=== PATIENT | male | born 1970 | race Caucasian/White ===

== ENCOUNTER → 2021-02-04 13:50 | Outpatient (CLI) | payer BC, SELFPAY | PROVIDERS: PCP Family Medicine; Visit Provider Family Medicine | DX: Z20.822 Contact with and (suspected) exposure to COVID-19 (principal) | CPT/HCPCS: 87635; U0005; U0003 ==

== ENCOUNTER → 2022-07-06 | Outpatient (CLI) | payer BC, SELFPAY ==
--- NOTE | 2022-07-06 | VAS_PTH ---
PATIENT: BERTHA TAYLOR LOC: [facility] U#:[id number] AGE/SX: 51/M ROOM: RE07/06/[address]: Dr. Chente Figueroa MD : 1970 BED: DIS: 07/06/2022 SPEC #: [id number] RECD: 07/06/22 15:57 STATUS: OBED RESolomon #: [id number] ASIF: 07/06/22 00:[address]: Chente Figueroa DEPT: SURGICAL PATHOLOGY RECD BY: Cameron Geronimo ENTERED: 07/07/22 08:59 SP TYPE: VAS OTHR DR: Dr. Mitch Morse MD Tissues: A - Vas deferens, NOS B - Vas deferens, NOS Procedures: Surgery Specimen Level II HEADER OPERATION: Bilateral partial vasectomy PRE-OP DIAGNOSIS: Sterilization TISSUE SUBMITTED: A ? Right vas deferens, B ? Left vas deferens MICROSCOPIC DIAGNOSIS A. Right vas deferens, partial vasectomy: Completely transected segment of vas deferens, no pathologic diagnosis. B. Left vas deferens, partial vasectomy: Completely transected segment of vas deferens, no pathologic diagnosis. SJ:ivanna 07/10/2022 MICROSCOPIC DESCRIPTION Slides are reviewed. GROSS DESCRIPTION A - Received is one container designated right vas deferens. The specimen consists of a cylindrical segment of pink-marie soft tissue measuring 0.4 cm in length and 0.2 cm in maximum diameter. The specimen is totally submitted in one cassette. B - Received is one container designated left vas deferens. The specimen consists of a cylindrical segment of pink-marie soft tissue measuring 0.5 cm in length and 0.2 cm in maximum diameter. The specimen is totally submitted in one cassette. / AM:ivanna 07/07/2022 TC:4 CPT: 05948 x2
== END | disposition home or self-care (01) ==
LOC: LABSPEC 16:17
PROVIDERS: PCP Family Medicine; Visit Provider Surgery
DX: Z30.2 Encounter for sterilization (principal)
CPT/HCPCS: 88302

== ENCOUNTER 2022-07-19 21:12 | Emergency (ER) | payer BC, SELFPAY ==
[2022-07-19 21:13] VITALS: BP 168/92; PULSE 71; RESP 15; TEMP 36.6; O2SAT 98; BMI 22.1
--- NOTE | 2022-07-19 21:27 | CT_ITS ---
EXAM: CT ABDOMEN AND PELVIS WITHOUT INTRAVENOUS CONTRAST CLINICAL INDICATION: abd pain TECHNIQUE: Helically acquired images were obtained of the abdomen and pelvis without intravenous contrast. This CT exam was performed using one or more of the following dose reduction techniques: automated exposure control, adjustment of the mA and/or kV according to patient size, and/or use of iterative reconstruction technique. This report was created using [employer] report generation technology. RADIATION DOSE: Total DLP: 343.77 mGy-cm. COMPARISON: None. FINDINGS: LOWER THORAX: Visualized lung bases are clear. No coronary artery calcification is visualized. There is a trace of pericardial effusion. ABDOMEN: LIVER: Scattered tiny rounded hypoattenuating foci noted within the liver, most likely cysts. GALLBLADDER AND BILE DUCTS: Unremarkable. No calcified gallstones. No gallbladder distention or wall edema. No intra- or extrahepatic biliary ductal dilation. PANCREAS: Unremarkable. No focal cystic mass. SPLEEN: Unremarkable. Normal size without focal cystic or solid mass. ADRENALS: Unremarkable. No nodules. KIDNEYS AND URETERS: Left kidney is mildly enlarged and emphysematous with mild left-sided hydronephrosis. The left ureter is mildly dilated to the level of a 2 x 4 mm reniform-shaped stone which lies within the mid ureter at the level of L5/S1 disc space. Distal left ureter is decompressed. No other renal or ureteral stones are seen. The right kidney is unremarkable. STOMACH AND BOWEL: Unremarkable. No stomach or bowel distention. No focal inflammatory change. PELVIS: APPENDIX: Retrocecal in location. No evidence of acute appendicitis. BLADDER: Unremarkable. REPRODUCTIVE: Unremarkable as visualized. No mass. ABDOMEN and PELVIS: INTRAPERITONEAL SPACE: Unremarkable. No ascites or other fluid collection. No free air. BONES/JOINTS: Unremarkable. No suspicious lytic or blastic abnormality. SOFT TISSUES: Small fat-filled bilateral inguinal hernias. VASCULATURE: Unremarkable. Abdominal aorta is non-dilated. LYMPH NODES: Unremarkable. No enlarged lymph nodes. CT/Abdomen/Pelvis without Cont IMPRESSION: Mild left hydronephrosis due to a 2 x 4 mm stone within the middle third of the ureter. Electronically Signed: Sorin Loredo MD at 22:07 EST ,
--- NOTE | 2022-07-19 21:28 | EDS_ITS ---
HPI History of Present Illness Chief Complaint: Abd Pain Informant: patient Onset/Context/Timing Onset: Today Context: Sudden Onset Current Severity: Severe Maximum Severity: Severe Narrative Narrative: Patient presents with sudden severe left lower quadrant abdominal pain this evening. He is been nauseated secondary to the degree of pain. He did not take anything for pain prior to arrival. He denies any similar symptoms in the past. He denies history of kidney stones. He did have a vasectomy performed on July 06 of this year. He has had no pain at his surgical site. PFSH PFS Medical History no medical history no medical history Home Medications loratadine 10 mg tablet (Claritin) 10 mg PO DAILY 04/22/21 [History Last Taken Unknown] triamcinolone acetonide 55 mcg nasal spray aerosol (Nasacort Allergy) 1 spray intranasal DAILY 04/22/21 [History Last Taken Unknown] ibuprofen 600 mg tablet 600 mg PO Q6H PRN PRN pain #20 tabs 07/19/22 [Rx Last Taken Unknown] ondansetron 4 mg disintegrating tablet 4 mg PO Q8H PRN nausea and vomiting #10 tabs 07/19/22 [Rx Last Taken Unknown] oxycodone-acetaminophen 5 mg-325 mg tablet (Percocet) 1 tab PO Q6H PRN pain 3 days #10 tabs 07/19/22 [Rx Last Taken Unknown] tamsulosin 0.4 mg capsule (Flomax) 0.4 mg PO DAILY #7 caps 07/19/22 [Rx Last Taken Unknown] Allergy/AdvReac Type Severity Reaction Status Date / Time No Known Allergies Allergy Verified 07/19/22 21:13 Family History Mother Breast cancer Father Colon cancer Surgical History History of vasectomy (~07/2022) Social History Smoking Status: Never smoker alcohol intake: never substance use type: does not use ROS ROS ED Constitutional Constitutional ED: Denies chills or fever(s) Eyes Eyes: Denies change in vision or discharge from eye(s) ENT ENT ED: Denies discharge from eye(s), rhinorrhea or sore throat Cardiovascular Cardiovascular: Denies chest pain or palpitations Respiratory/Chest Respiratory/Chest: Denies cough or dyspnea Gastrointestinal Gastrointestinal: Reports abdominal pain and nausea; Denies diarrhea or vomiting Genitourinary Genitourinary ED: Denies difficulty urinating or dysuria Musculoskeletal Musculoskeletal: Denies back pain or extremity pain Integumentary Denies Abrasions or rash Neurologic Neurologic: Denies headache(s) or weakness Psychiatric Psychiatric: Reports anxiety; Denies depression Allergic/Immunologic Allergic/Immunologic ED: Denies lip swelling or urticaria EXAM Physical Exam Const Vital Signs: 07/19/22 21:13 07/19/22 21:42 07/19/22 22:30 Temperature 97.8 F 98.2 F 98.4 F Temperature Source Temporal Temporal Temporal Pulse Rate 71 74 78 Respiratory Rate 15 17 16 Blood Pressure 168/92 H 132/74 H 114/77 Blood Pressure Mean 117 93 89 Pulse Ox 98 98 99 Oxygen Delivery Method Room Air Room Air Nasal Cannula 07/19/22 22:30 Temperature Temperature Source Pulse Rate Respiratory Rate Blood Pressure Blood Pressure Mean Pulse Ox 98 Oxygen Delivery Method Room Air Positive well nourished and well developed General Appearance ED: well developed HEENT Reports normocephalic and head/scalp atraumatic Eyes PERRL and EOMs intact bilaterally Neck supple Chest Wall inspection of chest normal and palpation of chest normal Resp normal respiratory effort and clear to auscultation bilaterally Cardio regular rate and regular rhythm GI non-tender Auscultation: hypoactive bowel sounds Palpation: soft Extremity normal to inspection Neuro oriented x3 and no sensory deficits noted Sensorium / Orientation: alert Motor Exam: strength 5/5 throughout Psych Psych Narrative: Anxious and tremulous. Skin no rashes or lesions noted MDM MDM MDM Narrative Medical decision making narrative: Patient is given morphine, Toradol, Zofran, IV fluids. Lab work ordered along with CT flank. Lab Data Attestation: I reviewed the patient's lab results. Labs: Laboratory Results - last 24 hr 07/19/22 07/19/22 21:44 21:44 WBC 11.5 H RBC 4.38 L Hgb 12.9 L Hct 38.2 L MCV 87.2 MCH 29.5 MCHC 33.8 RDW Std Deviation 40.8 RDW Coeff of [place] 12.7 Plt Count 322 MPV 10.1 Immature Gran % (Auto) 0.400 Neut % (Auto) 55.4 Lymph % (Auto) 34.2 [place] % (Auto) 7.1 Eos % (Auto) 1.9 Baso % (Auto) 1.0 Absolute Neuts (auto) 6.4 Absolute Lymphs (auto) 3.92 Nucleated RBC % 0 Sodium 141 Potassium 2.9 L Chloride 110 H Carbon Dioxide 22.0 Anion Gap 9 BUN 18 Creatinine 1.14 Estim Creat Clear Calc 75.43 Est GFR (MDRD) Af Amer 88 Est GFR (MDRD) Non-Af 72 BUN/Creatinine Ratio 15.8 Glucose 127 H Calcium 9.3 Radiography Diagnostic Testing: Clinical Impression(s) from Imaging Studies Abdomen/Pelvis CT 07/19/22 21:27 IMPRESSION: Mild left hydronephrosis due to a 2 x 4 mm stone within the middle third of the ureter. Electronically Signed: Sorin Loredo MD at 22:07 EST , Treatment and Re-Evaluation Narrative: CBC was a white count 11.5. No left shift noted. Chemistry studies reveal potassium of 2.9. Renal function is normal. After patient returns from CT scan he is having increasing pain again. He is given 1 mg of IV Dilaudid. CT scan of the flank reveals mild left hydro with a 2 x 4 mm stone in the mid third of the left ureter. Patient has required a total of 3 doses of pain medication. At this time he states he has no pain. In light of this we will attempt discharge to home with pain medication. Advised that if his pain becomes unbearable again he can return for admission if needed for pain control. Patient will be referred to urology for follow-up. Return instructions are given. Discharge Plan Triage Chief Complaint: Abd Pain ED Provider: Andreea Root Dx/Rx/DC Orders Clinical Impression: Ureterolithiasis Instructions: ED Kidney Stone w/ Colic Prescriptions: New oxycodone-acetaminophen [Percocet] 5-325 mg tablet 1 tab PO Q6H PRN (Reason: pain) 3 Days Qty: 10 0RF ibuprofen 600 mg tablet 600 mg PO Q6H PRN PRN (Reason: pain) Qty: 20 0RF ondansetron 4 mg tablet,disintegrating 4 mg PO Q8H PRN (Reason: nausea and vomiting) Qty: 10 0RF tamsulosin [Flomax] 0.4 mg capsule 0.4 mg PO DAILY Qty: 7 0RF No Action loratadine [Claritin] 10 mg tablet 10 mg PO DAILY triamcinolone acetonide [Nasacort Allergy] 55 mcg aerosol,spray 1 spray intranasal DAILY Rx Instructions: administer into each nostril Primary Care Provider: Gamal Morse Ref[facility]: [facility] Care Provider[facility] - [facility] Staff[facility] - 5-7 Days Disposition Disposition: Home, Self Care
[2022-07-19] MEDS: Morphine 4 MG/ML Syringe IV (21:37)
[2022-07-19] MEDS: Ketorolac 30 MG/ML Syringe IV (21:37)
[2022-07-19] MEDS: Ondansetron 4 MG/2 ML Vial IV (21:38)
[2022-07-19] MEDS: 0.9% Normal Saline 1,000 ML 150 ML IV (21:38)
[2022-07-19 21:42] VITALS: BP 132/74; PULSE 74; RESP 17; TEMP 36.8; O2SAT 98
[2022-07-19 21:50] LABS: Absolute Lymphocyte Count 3.92 X10^3/uL (0.83-4.51); Absolute Neutrophil Count 6.4 X10^3/uL (2.0-7.7); Basophil# 0.11 X10^3/uL; Eosinophil# 0.22 X10^3/uL; Eosinophils% 1.9 % (0-5); Hematocrit 38.2 % (40-54); Hemoglobin 12.9 g/dL (13.0-16.5); Lymphocyte # 3.92 X10^3/ul (0.83-4.51); Lymphocyte % 34.2 % (19-41); Mean Corp Hgb Conc 33.8 g/dL (32-36); Mean Corpuscular Hgb 29.5 pg (27.0-32.0); Mean Corpuscular Volume 87.2 fL (80-94); Mean Platelet Vol. 10.1 fl (6.2-12.0); Monocyte# 0.81 X10^3/uL; Monocyte% 7.1 % (0-10); NRBC Flagged by Analyzer 0 % (0-5); Neutrophil # 6.35 X10^3/uL (2.7-7.7); Neutrophil % 55.4 % (47-70); Platelet Count 322 K/mm3 (150-450); RBC Distribution Width CV 12.7 % (11.6-14.6); RBC Distribution Width SD 40.8 fl (35.1-43.9); Red Blood Count 4.38 M/mm3 (4.6-6.2); White Blood Count 11.5 K/mm3 (4.4-11.0)
[2022-07-19 22:16] LABS: Anion Gap 9 (5-15); BUN 18 mg/dL (7-18); BUN/Creat Ratio 15.8 RATIO (10-20); Calcium,Total 9.3 mg/dL (8.5-10.1); Chloride 110 mmol/L (98-107); Creatinine, Serum 1.14 mg/dL (0.70-1.30); EST Glomerular Filtration Rate 72 mL/min (>60); Est Glom Filt Rate - Afr Amer 88 mL/min (>60); Estimated Creatinine Clearance 75.43 ml/min; Glucose 127 mg/dL (74-106); Potassium 2.9 mmol/L (3.5-5.1); Sodium Level 141 mmol/L (136-145)
[2022-07-19] MEDS: HYDROmorphone 1 MG/ML Syringe IV (22:28)
[2022-07-19 22:30] VITALS: BP 114/77; PULSE 78; RESP 16; TEMP 36.9; O2SAT 98; O2SAT 99
[2022-07-19] MEDS: Potassium Chloride Oral Tablet 20 MEQ 40 MEQ PO (22:45)
[2022-07-19] MEDS: HYDROmorphone 0.5 MG/0.5 ML SYRINGE IV (23:13)
[2022-07-20 00:16] VITALS: O2SAT 97
== END 2022-07-20 00:17 | disposition home or self-care (01) ==
PROVIDERS: Emergency Provider Emergency Medicine; PCP Family Medicine; Visit Provider Emergency Medicine
DX: N13.2 Hydronephrosis with renal and ureteral calculous obstruction (principal)
CPT/HCPCS: 74176; 80048; 85025; 96374; 96375; 96376; 99282; J7030; A4216; J2405

== ENCOUNTER 2022-07-21 18:40 | Observation (INO) | payer BC, SELFPAY ==
[2022-07-21 18:41] VITALS: BP 114/80; PULSE 89; RESP 16; TEMP 36.4; O2SAT 99; BMI 22.3
[2022-07-21 20:21] LABS: Anion Gap 6 (5-15); BUN 16 mg/dL (7-18); BUN/Creat Ratio 13.9 RATIO (10-20); Calcium,Total 9.1 mg/dL (8.5-10.1); Chloride 113 mmol/L (98-107); Creatinine, Serum 1.15 mg/dL (0.70-1.30); EST Glomerular Filtration Rate 72 mL/min (>60); Est Glom Filt Rate - Afr Amer 87 mL/min (>60); Estimated Creatinine Clearance 75.28 ml/min; Glucose 111 mg/dL (74-106); Potassium 3.5 mmol/L (3.5-5.1); Sodium Level 142 mmol/L (136-145)
[2022-07-21 20:28] LABS: Bacteria 0 SEEN /hpf (None Seen)
[2022-07-21 20:34] LABS: Absolute Neutrophil Count 13.8 X10^3/uL (2.0-7.7); Basophil# 0.07 X10^3/uL; Basophil% 0.4 % (0-1); Eosinophil# 0.04 X10^3/uL; Eosinophils% 0.2 % (0-5); Hematocrit 39.4 % (40-54); Hemoglobin 13.4 g/dL (13.0-16.5); Lymphocyte % 5.6 % (19-41); Mean Corpuscular Hgb 29.6 pg (27.0-32.0); Mean Platelet Vol. 10.4 fl (6.2-12.0); Monocyte# 1.18 X10^3/uL; Monocyte% 7.3 % (0-10); NRBC Flagged by Analyzer 0 % (0-5); Platelet Count 287 K/mm3 (150-450); RBC Distribution Width CV 12.8 % (11.6-14.6); RBC Distribution Width SD 40.3 fl (35.1-43.9); Red Blood Count 4.53 M/mm3 (4.6-6.2); White Blood Count 16.1 K/mm3 (4.4-11.0)
[2022-07-21 20:35] LABS: Color, Urine Yellow (Yellow); Glucose, Dipstick Normal (Normal); Ketone-Dipstick 150 mg/dl (Negative); Leukocyte Esterase-Dipstick 25 /ul (Negative); Nitrite-Dipstick Negative (Negative); Occult Blood-Urine 250 /ul (Negative); Protein-Dipstick 15 mg/dl (Negative); Specific Gravity, Urine 1.025 (1.002-1.030); Urine Bilirubin Dipstick Negative (Negative); Urine Clarity Clear (Clear); Urine Urobilinogen Normal (Normal)
--- NOTE | 2022-07-21 20:37 | EDS_ITS ---
HPI History of Present Illness Chief Complaint: Abd Pain Narrative Narrative: 51-year-old male with history of kidney stone presenting for left flank pain. He was seen a couple of days ago for similar pain. He was given multiple doses of Dilaudid in the ER visit was hesitant to stay. He had a 2 mm x 4 mm ureteral stone at that time. He states that yesterday he felt pretty well and was able to eat and drink but today since about 4:30 AM he has been in a lot of pain. He is not able to hold down his oxycodone. He states the Zofran is not helping him with his nausea. He states he think he might held on 1 ibuprofen 600 mg. He has not had a fever. PFSH PFSH Home Medications loratadine 10 mg tablet (Claritin) 10 mg PO DAILY 04/22/21 [History Last Taken Unknown] triamcinolone acetonide 55 mcg nasal spray aerosol (Nasacort Allergy) 1 spray intranasal DAILY 04/22/21 [History Last Taken Unknown] ibuprofen 600 mg tablet 600 mg PO Q6H PRN PRN pain #20 tabs 07/19/22 [Rx Last Taken Unknown] ondansetron 4 mg disintegrating tablet 4 mg PO Q8H PRN nausea and vomiting #10 tabs 07/19/22 [Rx Last Taken Unknown] oxycodone-acetaminophen 5 mg-325 mg tablet (Percocet) 1 tab PO Q6H PRN pain 3 days #10 tabs 07/19/22 [Rx Last Taken Unknown] tamsulosin 0.4 mg capsule (Flomax) 0.4 mg PO DAILY #7 caps 07/19/22 [Rx Last Taken Unknown] Allergy/AdvReac Type Severity Reaction Status Date / Time No Known Allergies Allergy Verified 07/21/22 18:43 Family History Mother Breast cancer Father Colon cancer Surgical History History of vasectomy (~07/2022) Social History Smoking Status: Never smoker alcohol intake: never substance use type: does not use ROS ROS ED Constitutional Constitutional ED: Denies chills, fever(s) or sweats Eyes Eyes: Denies blurry vision or change in vision ENT ENT ED: Denies ear pain or sore throat Cardiovascular Cardiovascular: Denies chest pain, palpitations or racing heartbeat Respiratory/Chest Respiratory/Chest: Denies cough, dyspnea or sputum Gastrointestinal Gastrointestinal: Reports abdominal pain, nausea and vomiting; Denies constipation or diarrhea Genitourinary Genitourinary ED: Denies dysuria, hematuria or urinary frequency Musculoskeletal Musculoskeletal: Reports back pain; Denies arthralgias, myalgias or neck pain Integumentary Denies abscess, Abrasions or rash Neurologic Neurologic: Denies headache(s), paresthesias or weakness Psychiatric Psychiatric: Denies anxiety, depression, suicidal ideation or suicidal thoughts Endocrine Endocrinology: Denies polydipsia or polyuria EXAM Physical Exam Const Vital Signs: 07/21/22 18:41 07/21/22 20:53 07/21/22 22:12 Temperature 97.6 F L 98 F Temperature Source Temporal Oral Pulse Rate 89 69 Respiratory Rate 16 18 Blood Pressure 114/80 128/81 H Blood Pressure Mean 91 96 Pulse Ox 99 99 98 Oxygen Delivery Method Room Air Room Air Room Air Positive well nourished General Appearance ED: NAD; Negative for pallor HEENT Reports moist mucous membranes Eyes PERRL and EOMs intact bilaterally Neck no lymphadenopathy Resp normal respiratory effort and clear to auscultation bilaterally Cardio regular rate and regular rhythm GI Palpation: tender LLQ Bladder / Kidney Exam: CVA tenderness left Neuro oriented x3 and CN's II-XII intact bilaterally Sensorium / Orientation: alert Psych mental status grossly normal Skin General Skin Exam: Negative for jaundice or pallor MDM MDM MDM Narrative Medical decision making narrative: Patient seen and evaluated on arrival. Vital signs are stable he is afebrile. Patient treated with Dilaudid 1 mg IV and Phenergan IM since he states the Zofran is not working. CBC was obtained and he has a slight increase in his leukocytosis of 16.1. It was 11.5 yesterday. Hemoglobin hematocrit are stable. Renal function electrolytes normal. Patient required repeat dose of Dilaudid. Urinalysis obtained and shows urine ketones and occult blood but does not show any evidence of infection. Patient does not feel he can go home. I did speak with urology and they are willing to admit him and possibly place a stent tomorrow. Patient is amenable to this. He is admitted in stable condition. Impression: 1. Left ureteral calculi 2. Intractable abdominal pain 3. Nausea/ Lab Data Attestation: I reviewed the patient's lab results. Labs: Laboratory Results - last 24 hr 07/21/22 07/21/22 07/21/22 20:00 20:00 20:25 WBC 16.1 H RBC 4.53 L Hgb 13.4 Hct 39.4 L MCV 87.0 MCH 29.6 MCHC 34.0 RDW Std Deviation 40.3 RDW Coeff of Gordy 12.8 Plt Count 287 MPV 10.4 Immature Gran % (Auto) 0.500 Neut % (Auto) 86.0 H Lymph % (Auto) 5.6 L [place] % (Auto) 7.3 Eos % (Auto) 0.2 Baso % (Auto) 0.4 Absolute Neuts (auto) 13.8 H Absolute Lymphs (auto) 0.90 Nucleated RBC % 0 Sodium 142 Potassium 3.5 Chloride 113 H Carbon Dioxide 23.0 Anion Gap 6 BUN 16 Creatinine 1.15 Estim Creat Clear Calc 75.28 Est GFR (MDRD) Af Amer 87 Est GFR (MDRD) Non-Af 72 BUN/Creatinine Ratio 13.9 Glucose 111 H Calcium 9.1 Urine Color Yellow Urine Clarity Clear Urine pH 6.0 Ur Specific [place] 1.025 Urine Protein 15 H Urine Glucose (UA) Normal Urine Ketones 150 A* Urine Occult Blood 250 H Urine Nitrite Negative Urine Bilirubin Negative Urine Urobilinogen Normal Ur Leukocyte Esterase 25 H Urine RBC 0-5 SEEN Urine WBC 0-5 SEEN Ur Squamous Epith Cells 0-5 SEEN Urine Bacteria 0 SEEN Urine Mucus 4+ Discharge Plan Triage Chief Complaint: Abd Pain ED Provider: Baron Hernandez Dx/Rx/DC Orders Prescriptions: No Action loratadine [Claritin] 10 mg tablet 10 mg PO DAILY triamcinolone acetonide [Nasacort Allergy] 55 mcg aerosol,spray 1 spray intranasal DAILY Rx Instructions: administer into each nostril oxycodone-acetaminophen [Percocet] 5-325 mg tablet 1 tab PO Q6H PRN (Reason: pain) 3 Days Qty: 10 0RF ibuprofen 600 mg tablet 600 mg PO Q6H PRN PRN (Reason: pain) Qty: 20 0RF ondansetron 4 mg tablet,disintegrating 4 mg PO Q8H PRN (Reason: nausea and vomiting) Qty: 10 0RF tamsulosin [Flomax] 0.4 mg capsule 0.4 mg PO DAILY Qty: 7 0RF Primary Care Provider: Gamal Morse Referrals: Gamal Morse MD [Primary Care Provider] -
[2022-07-21 20:39] LABS: Red Blood Cells-Urine 0-5 SEEN /hpf (0-5); White Blood Cells 0-5 SEEN /hpf (0-5)
[2022-07-21 20:40] LABS: Mucous, Urine 4+ /hpf (<or=2+); Squamous Epithelial Cells - UA 0-5 SEEN /hpf (0-5)
[2022-07-21] MEDS: proMETHazine 25 MG/ML Syringe 12.5 MG IM (20:47)
[2022-07-21] MEDS: HYDROmorphone 1 MG/ML Syringe IV ×2 (20:48→22:37)
[2022-07-21 20:53] VITALS: BP 128/81; PULSE 69; RESP 18; TEMP 36.6; O2SAT 99
[2022-07-21 22:12] VITALS: O2SAT 98
[2022-07-21] MEDS: 0.9% Normal Saline 1,000 ML 999 ML IV (22:36)
[2022-07-21 22:38] VITALS: BP 138/73; PULSE 95; RESP 17; TEMP 36.8; O2SAT 95
[2022-07-21 23:24] VITALS: BMI 21.7
[2022-07-21 23:33] VITALS: BP 125/78; PULSE 81; RESP 16; TEMP 37.5; O2SAT 95
[2022-07-21] MEDS: Ketorolac 15 MG/ML Vial IV (23:39)
[2022-07-22] VITALS (8 sets, daily range): BP systolic 103–130; BP diastolic 70–89; PULSE 65–114; RESP 16–18; TEMP 36.4–37.1; O2SAT 96–98; BMI 21.7
[2022-07-22] MEDS: Morphine 2 MG/ML Syringe IV (04:32)
[2022-07-22] MEDS: Ondansetron 4 MG/2 ML Vial IV (04:44)
--- NOTE | 2022-07-22 07:52 | HP.PCM_ITS ---
HPI - General General Date of Admission: 07/21/22 Date of Service: 07/22/22 HPI Narrative BERTHA TAYLOR, is a 51 M who presents with an obstructing stone in the mid left ureter severe intractable pain patient came back second time to the emergency room severe pain so he was admitted for pain control plan to take him to surgery to perform laser lithotripsy on the stone and stent placement PFSH Home Medications loratadine 10 mg tablet (Claritin) 10 mg PO DAILY 04/22/21 [History Last Taken Unknown] triamcinolone acetonide 55 mcg nasal spray aerosol (Nasacort Allergy) 1 spray intranasal DAILY 04/22/21 [History Last Taken 07/21/22] ibuprofen 600 mg tablet 600 mg PO Q6H PRN PRN pain #20 tabs 07/19/22 [Rx Last Taken 07/21/22] ondansetron 4 mg disintegrating tablet 4 mg PO Q8H PRN nausea and vomiting #10 tabs 07/19/22 [Rx Last Taken 07/21/22] oxycodone-acetaminophen 5 mg-325 mg tablet (Percocet) 1 tab PO Q6H PRN pain 3 days #10 tabs 07/19/22 [Rx Last Taken Unknown] tamsulosin 0.4 mg capsule (Flomax) 0.4 mg PO DAILY #7 caps 07/19/22 [Rx Last Taken Unknown] Allergy/AdvReac Type Severity Reaction Status Date / Time No Known Allergies Allergy Verified 07/21/22 18:43 Family History Mother Breast cancer Father Colon cancer Surgical History History of vasectomy (~07/2022) Social History Smoking Status: Never smoker alcohol intake: never substance use type: does not use ROS Constitutional Constitutional: Denies chills, fever(s) or malaise Eyes Eyes: Denies blurry vision or change in vision ENT HEENT: Reports none Cardiovascular Cardiovascular: Denies chest pain or palpitations Respiratory/Chest Respiratory/Chest: Denies cough or shortness of breath with exertion Gastrointestinal Gastrointestinal: Denies abdominal pain, constipation or diarrhea Musculoskeletal Musculoskeletal: Denies back pain, joint stiffness or joint swelling Integumentary Integumentary: Denies dry skin, jaundice, lesions or rash Neurologic Neurologic: Denies confusion, syncope or weakness Psychiatric Psychiatric: Reports none; Denies anxiety or depression Endocrine Endocrinology: Denies excessive sweating, fatigue or flushing Hematologic/Lymphatic Hematologic/Lymphatic: Denies anemia, easy bleeding or easy bruising Vital Signs Vital Signs Vital Signs: 07/21/22 18:41 07/21/22 20:53 07/21/22 22:12 Temperature 97.6 F L 98 F Temperature Source Temporal Oral Pulse Rate 89 69 Respiratory Rate 16 18 Blood Pressure 114/80 128/81 H Blood Pressure Mean 91 96 Blood Pressure Source Blood Pressure Position Blood Pressure Location Pulse Ox 99 99 98 Oxygen Delivery Method Room Air Room Air Room Air 07/21/22 22:38 07/21/22 23:33 07/22/22 03:55 Temperature 98.3 F 99.5 F H 98.8 F Temperature Source Temporal Oral Oral Pulse Rate 95 81 65 Respiratory Rate 17 16 18 Blood Pressure 138/73 H 125/78 H 130/78 H Blood Pressure Mean 94 93 95 Blood Pressure Source Monitor Monitor Blood Pressure Position Semi-Fowlers Semi-Fowlers Blood Pressure Location Left Arm Left Arm Pulse Ox 95 95 98 Oxygen Delivery Method Room Air Room Air Room Air 07/22/22 07:35 Temperature 98.6 F Temperature Source Oral Pulse Rate 66 Respiratory Rate 18 Blood Pressure 126/77 H Blood Pressure Mean 93 Blood Pressure Source Monitor Blood Pressure Position Semi-Fowlers Blood Pressure Location Left Arm Pulse Ox 97 Oxygen Delivery Method Room Air Weight Weight: 66.9 kg Body Mass Index (BMI) 21.7 Physical Exam Const alert and oriented x3 General Appearance: cooperative HEENT normocephalic, head/scalp atraumatic, EAC's normal and TM's normal bilaterally Eyes PERRL and EOMs intact bilaterally Pupil: sluggish Neck no lymphadenopathy, supple and no JVD General: trachea midline Lymph Lymphatic: no lymphadenopathy noted, lymphedema and lymphadenopathy Resp normal respiratory effort, normal air movement and clear to auscultation bilaterally Cardio regular rate, regular rhythm and peripheral pulses 2+ throughout GI soft to palpation, non-tender and non-distended Extremity normal capillary refill and no clubbing, cyanosis or edema General Extremity: no tenderness to palpation of joints or extremities Skin no rashes or lesions noted General Skin Exam: turgor normal Lesions: no lesions Rashes: no rashes Neuro CN's II-XII intact bilaterally Speech: speech normal Motor Exam: strength 5/5 throughout; Negative for general weakness Psych thought process normal, cooperative and affect normal Appearance: appropriate Results Lab / Micro Data Result Diagrams: 07/21/22 20:00 07/21/22 20:00 Labs: Laboratory Results - last 24 hr 07/21/22 20:00: Sodium 142, Potassium 3.5, Chloride 113 H, Carbon Dioxide 23.0, Anion Gap 6, BUN 16, Creatinine 1.15, Estim Creat Clear Calc 75.28, Est GFR (MDRD) Af Amer 87, Est GFR (MDRD) Non-Af 72, BUN/Creatinine Ratio 13.9, Glucose 111 H, Calcium 9.1 07/21/22 20:00: WBC 16.1 H, RBC 4.53 L, Hgb 13.4, Hct 39.4 L, MCV 87.0, MCH 29.6, MCHC 34.0, RDW Std Deviation 40.3, RDW Coeff of Gordy 12.8, Plt Count 287, MPV 10.4, Immature Gran % (Auto) 0.500, Neut % (Auto) 86.0 H, Lymph % (Auto) 5.6 L, [place] % (Auto) 7.3, Eos % (Auto) 0.2, Baso % (Auto) 0.4, Absolute Neuts (auto) 13.8 H, Absolute Lymphs (auto) 0.90, Nucleated RBC % 0 07/21/22 20:25: Urine Color Yellow, Urine Clarity Clear, Urine pH 6.0, Ur Specific [place] 1.025, Urine Protein 15 H, Urine Glucose (UA) Normal, Urine Ketones 150 A*, Urine Occult Blood 250 H, Urine Nitrite Negative, Urine Bilirubin Negative, Urine Urobilinogen Normal, Ur Leukocyte Esterase 25 H, Urine RBC 0-5 SEEN, Urine WBC 0-5 SEEN, Ur Squamous Epith Cells 0-5 SEEN, Urine Bacteria 0 SEEN, Urine Mucus 4+ Assessment & Plan Assessment/Plan (1) Ureterolithiasis: PLAN: Plan to take to surgery for lasering of the stone and stent placement. He will be discharged after the procedure
--- NOTE | 2022-07-22 07:55 | DCINST_ITS ---
Discharge Instructions Diet Discharge Diet: No restrictions, Light diet - advance as tolerated and Soft diet Activity Discharge Activity: May Not Drive and May Shower Return to work on:: 07/29/22 May shower in (days): 1 Lifting Restrictions: No heavy lifting or heavy activity Dressing / Incision Call your doctor if your incision/area has: Sudden Increased Bleeding Call your doctor if you observe: Fever of 101 or Higher Follow Up Care Please Follow Up With: Suman Sierra MD When: Call for an appointment to get the stent out Test Results: Test results from this visit will be discussed in further detail at your follow- up appointment, if applicable. Discharge Plan Admission Admit Date/Time: 07/21/22 22:27 Primary Reason for Your Visit: Kidney stone Attending Provider: Suman Sierra Primary Care Provider: Gamal Morse Discharge Orders/Prescriptions Prescriptions: Continued loratadine [Claritin] 10 mg tablet 10 mg PO DAILY triamcinolone acetonide [Nasacort Allergy] 55 mcg aerosol,spray 1 spray intranasal DAILY Rx Instructions: administer into each nostril oxycodone-acetaminophen [Percocet] 5-325 mg tablet 1 tab PO Q6H PRN (Reason: pain) 3 Days Qty: 10 0RF ibuprofen 600 mg tablet 600 mg PO Q6H PRN PRN (Reason: pain) Qty: 20 0RF ondansetron 4 mg tablet,disintegrating 4 mg PO Q8H PRN (Reason: nausea and vomiting) Qty: 10 0RF tamsulosin [Flomax] 0.4 mg capsule 0.4 mg PO DAILY Qty: 7 0RF Referrals / Follow Up: Gamal Morse MD [Primary Care Provider] - uSman Sierra MD [Med Staff - Active Staff] - Disposition Discharge Orders: Discharge Patient (Routine); Ordered 07/22/22 Ordered By: Dr. Suman Sierra
--- NOTE | 2022-07-22 08:42 | OP.PCM_ITS ---
Problems Associated Problem List Diagnoses (1) Ureterolithiasis: Report of Operation Date of Procedure: 07/22/22 Pre-Operative Diagnosis: Left ureteral calculi Post-Operative Diagnosis: Same Surgery/Procedure Performed:: Cystoscopy, left retrograde pyelogram interpretation fluoroscopic images, balloon dilation of the ureter, ureteroscopy laser lithotripsy of stone and stent placement Description of Surgical Findings:: This is a patient who presents to the hospital for treatment for an obstructing ureter calculi. I discussed with the patient how the surgery would be performed and we reviewed the risks and benefits of the surgery. The risk and benefits include the risk of failure to remove the stone completely and that the patient may need multiple procedures. We discussed the risk of an infection, the risk of bleeding. We discussed the very rare risk of serious complicated injury to the ureter. The patient understands that if the stone is not able to be removed safely that we may abort the procedure and place a stent. After full discussion and all questions address with the patient the consent form was signed the side was marked appropriately and the patient was taken back to the operating room for the procedure. The patient was taken back to the operating room. After induction of anesthesia by the anesthesiology team the patient was placed in dorsolithotomy position. The genitals were prepped and draped in usual sterile fashion. I went into the bladder with a 21 Indonesian rigid cystourethroscope through the urethra. Upon entering the bladder I inspected the trigone the left and right ureteral orifice and the bladder itself. I then cannulated the Left ureteral orifice and advanced a 0.038 Glidewire up into the kidney. Then over the Glidewire I advanced a 5 Fr Ureteral catheter and performed a retrograde pyelogram with about 10cc of contrast, to delineate the anatomy and identify the stone location. Then a ureteral balloon dilator was advanced over the wire and the distal ureter was balloon dilated with a 12 Fr x 5cm balloon dilator. After 3 minutes of dilating the ureter the balloon was backloaded off the 0.038 glidewire over the 0.038 guidewire I went in with the flexible 7.5fr ureteroscope. I was able to go inside with the 7.5Fr utereroscope and I pulled out the guidewire and then through the ureteroscope I engage the stone with laser lithotripsy using a 270miron laser fiber with energy setting of 6 Hertz and 0.6 J until the stone was lasered into tiny little pieces that should pass on their own. A retrograde pyelogram was performed with 10cc of contrast and no extravasation of contrast or perforation was identified in the ureter there was some mild irritation of the ureter where the stone was located. I then backed out of the ureter left the wire in place and then over the 0.038 guidewire I placed a double coiled pigtail ureteral stent. The ureteral stent was advanced over the 0.038 guidewire under direct fluoroscopic guidance and direct cystoscopic visual guidance, once the stent was in good position I pulled the wire and the stent coiled in the kidney and bladder in good position. I then drained the patient's bladder and the cystoscope was removed and the patient was taken back to the recovery room in good position. The patient was given discharge instructions to call the office for instructions on when to come to the office to have the stent removed. Surgeon: Suman Sierra Type of Anesthesia: General Drains: stent Admit VTE Documentation VTE Present on Admission: No VTE Mechan Device Prophylaxis: SCD's
== END 2022-07-22 17:15 | disposition home or self-care (01) ==
LOC: ED 21:38 → MS3 22:42
PROVIDERS: Admitting Provider Urology; Emergency Provider Student in an Organized Health Care Education/Training Program; PCP Family Medicine; Visit Provider Urology
PROC: (CPT 52356; principal; 2022-07-22 07:30)
DX: N20.1 Calculus of ureter (principal)
CPT/HCPCS: 52356; 52341; 00918; 76000; 80048; 81001; 85025; 96372; 96374; 96375; 96376; 99218; 99283; J7030; A4216; C1769; C2617; G0378; J2405

== ENCOUNTER → 2022-08-16 | Outpatient (CLI) | payer BC, SELFPAY ==
[2022-08-16 10:07] LABS: Semen Analysis Post Vas PRELIMINARY PRESENT
[2022-08-17 09:16] LABS: Pathologist Review Reviewed
== END | disposition home or self-care (01) ==
LOC: LABSPEC 07:27
PROVIDERS: PCP Family Medicine; Referring Provider Surgery; Visit Provider Surgery
DX: Z30.2 Encounter for sterilization (principal)
CPT/HCPCS: 89321

== ENCOUNTER → 2022-08-29 | Outpatient (CLI) | payer BC, SELFPAY ==
[2022-08-29 11:31] LABS: Semen Analysis Post Vas PRELIMINARY PRESENT
[2022-08-31 10:34] LABS: Pathologist Review Reviewed
== END | disposition home or self-care (01) ==
PROVIDERS: PCP Family Medicine; Referring Provider Surgery; Visit Provider Surgery
DX: Z30.2 Encounter for sterilization (principal)
CPT/HCPCS: 89321

== ENCOUNTER → 2022-09-12 | Outpatient (CLI) | payer BC, SELFPAY ==
[2022-09-12 09:42] LABS: Semen Analysis Post Vas ABSENT
[2022-09-14 13:43] LABS: Pathologist Review Reviewed
== END | disposition home or self-care (01) ==
PROVIDERS: PCP Family Medicine; Referring Provider Surgery; Visit Provider Surgery
DX: Z30.2 Encounter for sterilization (principal)
CPT/HCPCS: 89321

== ENCOUNTER → 2022-09-25 | Outpatient (CLI) | payer BC, SELFPAY ==
[2022-09-25 14:21] LABS: Semen Analysis Post Vas PRELIMINARY PRESENT
[2022-09-26 14:50] LABS: Pathologist Review Reviewed
== END | disposition home or self-care (01) ==
LOC: LABSPEC 10:47
PROVIDERS: PCP Family Medicine; Referring Provider Surgery; Visit Provider Surgery
DX: Z30.2 Encounter for sterilization (principal)
CPT/HCPCS: 89321

== ENCOUNTER → 2022-10-10 | Outpatient (CLI) | payer BC, SELFPAY ==
[2022-10-10 11:34] LABS: Semen Analysis Post Vas PRELIMINARY PRESENT
[2022-10-11 11:38] LABS: Pathologist Review Reviewed
== END | disposition home or self-care (01) ==
LOC: LABSPEC 06:59
PROVIDERS: PCP Family Medicine; Referring Provider Surgery; Visit Provider Surgery
DX: Z30.2 Encounter for sterilization (principal)
CPT/HCPCS: 89321

== ENCOUNTER → 2022-11-21 | Outpatient (CLI) | payer BC, SELFPAY ==
[2022-11-21 09:54] LABS: Semen Analysis Post Vas ABSENT
[2022-11-23 09:52] LABS: Pathologist Review Reviewed
== END | disposition home or self-care (01) ==
LOC: LABSPEC 07:05
PROVIDERS: PCP Family Medicine; Referring Provider Surgery; Visit Provider Surgery
DX: Z30.2 Encounter for sterilization (principal)
CPT/HCPCS: 89321

== ENCOUNTER → 2022-12-06 | Outpatient (CLI) | payer BC, SELFPAY ==
[2022-12-06 09:37] LABS: Semen Analysis Post Vas ABSENT
[2022-12-08 09:55] LABS: Pathologist Review Reviewed
== END | disposition home or self-care (01) ==
LOC: LABSPEC 08:17
PROVIDERS: PCP Family Medicine; Referring Provider Surgery; Visit Provider Surgery
DX: Z30.2 Encounter for sterilization (principal)
CPT/HCPCS: 89321